=== PATIENT | male | born 1995 | race African-American/Black ===

== ENCOUNTER 2017-04-12 09:50 | Emergency (ER) | payer OTHER, MEDICAID ==
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
[2017-04-12 12:21] VITALS: BP 111/60
== END 2017-04-12 12:21 | disposition home or self-care (01) ==
LOC: EDBD 09:50 → ER 09:50
PROC: 0HQ1XZZ Repair Face Skin, External Approach (ICD-10-PCS; principal; 2017-04-12)
DX: S01.21XA Laceration without foreign body of nose, initial encounter (principal); W22.8XXA Striking against or struck by other objects, initial encounter; Y99.0 Civilian activity done for income or pay
CPT/HCPCS: 70160; 99283